=== PATIENT | female | born 1965 | race Caucasian/White ===

== ENCOUNTER 2018-11-23 18:05 | Emergency (ER) | payer OTHER ==
[2018-11-23] MEDS ORDERED: oxyCODONE TAB* 5 MG TAB PO ONE (19:35)
--- NOTE | 2018-11-23 19:39 | ED ---
Lower Extremity - HPI Summary HPI Summary: Patient complains of right knee pain 4 days. Denies known injury. Pain is constant but worse tonight. Ibuprofen provides no relief. Medical history is diabetes. - History of Current Complaint Chief Complaint: EDExtremityLower Stated Complaint: RT KNEE PAIN PER PT Time Seen by Provider: 11/23/18 19:01 Hx Obtained From: Patient Mechanism Of Injury: Unknown Onset of Pain: Days Onset/Duration: Days Severity Initially: Mild Severity Currently: Mild Pain Intensity: 2 Pain Scale Used: 0-10 Numeric Timing: Constant Location: Is Discrete @ Character Of Pain: Aching, Throbbing Associated Signs And Symptoms: Positive: Negative Aggravating Factor(s): Other Alleviating Factor(s): Nothing Able to Bear Weight: Yes - Allergies/Home Medications Allergies/Adverse Reactions: Allergies Allergy/AdvReac Type Severity Reaction Status Date / Time No Known Allergies Allergy Verified 11/23/18 18:06 PMH/Surg Hx/FS Hx/Imm Hx Endocrine/Hematology History: Denies: Hx Anticoagulant Therapy Cardiovascular History: Denies: Hx Pacemaker/ICD History: Denies: Hx Dialysis Sensory History: Denies: Hx Eye Prosthesis Opthamlomology History: Denies: Hx Legally Blind EENT History: Denies: Hx Deafness Neurological History: Denies: Hx CVA Psychiatric History: Denies: Hx Autism - Cancer History Hx Chemotherapy: No Hx Radiation Therapy: No Infectious Disease History: No Infectious Disease History: Denies: Traveled Outside the [place] in Last 30 Days - Family History Known Family History: Positive: Non-Contributory - Social History Alcohol Use: None Substance Use Type: Reports: None Smoking Status (MU): Heavy Every Day Tobacco Smoker Review of Systems Constitutional: Negative Eyes: Negative ENT: Negative Cardiovascular: Negative Respiratory: Negative Gastrointestinal: Negative Genitourinary: Negative Musculoskeletal: Other Skin: Negative Neurological: Negative Psychological: Normal All Other Systems Reviewed And Are Negative: Yes Physical Exam - Summary Physical Exam Summary: No swelling, ecchymosis, erythema, extra warmth noted to right knee. Full range of motion of right knee. No pain with palpation of right knee. PMS intact distally. Triage Information Reviewed: Yes Vital Signs On Initial Exam: Initial Vitals Temp Pulse Resp BP Pulse Ox 98.6 F 110 20 146/78 96 11/23/18 18:07 11/23/18 18:07 11/23/18 18:07 11/23/18 18:07 11/23/18 18:07 Vital Signs Reviewed: Yes Appearance: Positive: Well-Appearing Skin: Positive: Warm Head/Face: Positive: Normal Head/Face Inspection Eyes: Positive: Normal Neck: Positive: Supple Respiratory/Lung Sounds: Positive: Clear to Auscultation Cardiovascular: Positive: Normal Abdomen Description: Positive: Nontender Musculoskeletal: Positive: Normal Neurological: Positive: Normal Psychiatric: Positive: Normal AVPU Assessment: Alert - Emmett Coma Scale Best Eye Response: 4 - Spontaneous Best Motor Response: 6 - Obeys Commands Best Verbal Response: 5 - Oriented Coma Scale Total: 15 Diagnostics - Vital Signs Vital Signs Temp Pulse Resp BP Pulse Ox 11/23/18 18:07 98.6 F 110 20 146/78 96 - Laboratory Lab Statement: Any lab studies that have been ordered have been reviewed, and results considered in the medical decision making process. Lower Extremity Course/Dx - Course Course Of Treatment: Patient complains of right knee pain 4 days. Denies known injury. Pain is constant but worse tonight. Ibuprofen provides no relief. Medical history is diabetes. Physical exam:No swelling, ecchymosis, erythema, extra warmth noted to right knee. Full range of motion of right knee. No pain with palpation of right knee. PMS intact distally. Vital signs within normal limits. Knee x-ray negative. Rest, ice and ibuprofen. Follow up with orthopedics if symptoms do not improve. Patient understands and approves the plan. - Diagnoses Provider Diagnoses: Knee pain, acute Discharge - Sign-Out/Discharge Documenting (check all that apply): Patient Departure Patient Received Moderate/Deep Sedation with Procedure: No - Discharge Plan Condition: Stable Disposition: HOME Prescriptions: Oxycodone HCl 5 mg PO Q8H 2 Days #4 tablet MDD 3 tabs Patient Education Materials: Knee Pain (ED) Referrals: Citlalli Pleitez MD [Primary Care Provider] - Nestor Abebe MD [Medical Doctor] - Additional Instructions: Ice right knee 15 minutes every hour. Take ibuprofen 600 mg every 6 hours. Follow-up with orthopedics Dr. Abebe if pain lasts more than 1 week. - Billing Disposition and Condition Condition: STABLE Disposition: Home
[2018-11-23 19:53] VITALS: BP 133/83
== END 2018-11-23 19:52 | disposition home or self-care (01) ==
LOC: ED 18:05
DX: M25.561 Pain in right knee (principal); F17.210 Nicotine dependence, cigarettes, uncomplicated
CPT/HCPCS: 99283; A9270-GY